=== PATIENT | female | born 1970 | race African-American/Black ===

== ENCOUNTER 2019-09-21 11:42 | Emergency (ER) | payer SELFPAY ==
[~2019-09-21] VITALS: Ht 180.3 cm; Wt 148.8 kg
--- NOTE | 2019-09-21 11:59 | NUR ---
ED Nurse Note: Pt walked in from home c/o cough and wheezing x 2 days. Denies n/v/chills/diarrhea. A+Ox4. Respirations even and unlabored on room air. Vitals stable as documented.
[2019-09-21 12:07] VITALS: BP 130/66
[2019-09-21] MEDS ORDERED: Lidocaine 4% Amp 5ml ONE (12:16)
--- NOTE | 2019-09-21 12:26 | NUR ---
ED Nurse Note: ERMD on bedside.
--- NOTE | 2019-09-21 12:40 | NUR ---
ED Nurse Note: RT on bedside.
[2019-09-21] MEDS ORDERED: PREDNISONE20 MG ORAL (12:44)
[2019-09-21] MEDS ORDERED: ZYRTEC10 M3 ORAL (12:44)
[2019-09-21] MEDS ORDERED: ZITHROMAX250 MG ORAL (12:44)
[2019-09-21] MEDS ORDERED: Albuterol/Ipratropium 3ml neb HHN ONE (12:45)
[2019-09-21] MEDS: Lidocaine 4% Amp 5ml INH ONE ×2 (12:56→13:04)
--- NOTE | 2019-09-21 12:56 | NUR ---
RESPIRATORY NOTE: ordered meds for irritation along with breathing tx. pt refuses lidocaine. states she takes breathing tx at home and one is enough. explained the benefit of taking lidocaine but refuses to take right now. will ask pt again
--- NOTE | 2019-09-21 13:00 | NUR ---
ED Nurse Note: Clarified lidocaine order per Dr. Lira. Medication picked up at pharmacy; handed to RT.
--- NOTE | 2019-09-21 13:05 | NUR ---
RESPIRATORY NOTE: pt agreed to try med lidocaine. RN aware
[2019-09-21] MEDS ORDERED: PROMETH-CODEIN 65 ML PO (13:16)
[2019-09-21 13:30] VITALS: BP 130/66
--- NOTE | 2019-09-21 13:30 | NUR ---
ER DISCHARGE NOTE: Patient is cleared to be discharged per ERMD, pt is aox4, on room air, with stable vital signs. pt was given dc and prescription instructions, pt was able to verbalize understanding, pt id band removed. pt is able to ambulate with steady gait. pt took all belongings.
--- NOTE | 2019-09-22 14:21 | Diagnostic Imaging Report ---
Indication: Dyspnea Comparison: None A single view chest radiograph was obtained. Findings: Cardiomediastinal appearance is within normal limits for age. The lungs are clear. Pulmonary vascularity is appropriate. The diaphragmatic contour is smooth and costophrenic angles are sharp. No pleural effusions are identified. The bones are unremarkable. Impression: No acute findings
--- NOTE | 2019-09-25 08:03 | Emergency Room Report ---
History of Present Illness General Chief Complaint: Upper Respiratory Illness Source: Patient Present Illness HPI Patient is a 48-year-old female presents after increased cough. Reports having prior history of COPD. States that she is a former smoker. Reports having multiple episodes of coughing which is nonproductive. Denies any fever. Denies any recent leg swelling. Had recently been on oral steroids as well as inhalers. She had recently discontinued oral steroids. Reports having increased cough. Denies any difficulty breathing. Cough had not been improving after several days. Allergies: Coded Allergies: BENZONATATE (Verified Allergy, Unknown, 09/21/19) GUAIFENESIN (Verified Allergy, Unknown, 09/21/19) Patient History Past Medical History: see triage record Last Menstrual Period: 08/17/2019 Now: No Reviewed Nursing Documentation: PMH: Agreed; PSxH: Agreed Nursing Documentation-PMH Past Medical History: No History, Except For Hx COPD: Yes Review of Systems All Other Systems: negative except mentioned in HPI Physical Exam Vital Signs Date Time Temp Pulse Resp B/P (MAP) Pulse Ox O2 Delivery O2 Flow Rate FiO2 09/21/19 11:46 98.2 82 16 130/66 (87) 98 Room Air Sp02 EP Interpretation: reviewed, normal General Appearance: normal inspection, well appearing, no apparent distress, alert, GCS 15, obese Head: atraumatic ENT: normal ENT inspection, hearing grossly normal, normal voice Neck: normal inspection, full range of motion, supple, no bony tend Respiratory: normal inspection, lungs clear, normal breath sounds, no respiratory distress, no retraction, no wheezing Cardiovascular #1: regular rate, rhythm, no edema Gastrointestinal: normal inspection, normal bowel sounds, non tender, soft, no guarding, no hernia Genitourinary: no CVA tenderness Musculoskeletal: normal inspection, back normal, normal range of motion Neurologic: alert, motor strength/tone normal, finish cleaner III-XII nml as tested, oriented x3, responsive, speech normal, normal inspection Psychiatric: normal inspection, judgement/insight normal, mood/affect normal Medical Decision Making Diagnostic Impression: Primary Impression: COPD exacerbation ER Course Patient presented for cough. Differential diagnosis include was not limited to bronchitis, pneumonia, COPD exacerbation, upper respiratory infection among others. Patient has a benign exam and does not appear to require any testing at this time. Patient states that she has allergies to multiple different types of cough medications. Patient had recently been on steroids and was given further steroids in the emergency department. She was also given breathing treatment with some improvement. She is given nebulized lidocaine without any change in cough. Patient noted to have fairly persistent coughing and had reportedly recently finished oral azithromycin. Patient was given prescription for medications for cough including codeine-containing which patient requested by name. Patient does appear to have significant cough and therefore she was given prescription for this. Patient was advised that she should follow-up with lime kiln tender for recheck and not return to the emergency department for any need for further cough medications. She is advised to return if she had increased shortness of breath fever or other concerns. The patient is advised to follow up with primary care doctor in 1-2 days. Patient is advised to return if any worsening condition or if any changes in status that are concerning. This report is dictated with [employer] vp training software which may occasionally lead to discrepancies related to use of this software. Labs Test 09/21/19 12:39 Urine HCG, Qualitative Negative (NEGATIVE) Last Vital Signs Date Time Temp Pulse Resp B/P (MAP) Pulse Ox O2 Delivery O2 Flow Rate FiO2 09/21/19 13:30 98.2 81 20 130/66 100 Room Air Status: improved Disposition: HOME, SELF-CARE Condition: Stable Scripts Promethazine HCl/Codeine (Prometh-Codein 6.25-10 mg/5 ml) 5 Ml Syrup 5 ML PO EVERY 12 HOURS for cough, #90 ML Prov: Anatoliy Lira MD 09/21/19 Azithromycin* (ZITHROMAX*) 250 Mg Tablet 250 MG ORAL DAILY, #6 TAB 0 Refills Take two tables once daily for 1 day, then one tablet once daily for 4 days. Prov: Anatoliy Lira MD 09/21/19 Cetirizine Hcl (ZYRTEC) 10 Mg Capsule 10 MG ORAL DAILY, #30 CAP 0 Refills Prov: Anatoliy Lira MD 09/21/19 Prednisone* (PREDNISONE*) 20 Mg Tablet 60 MG ORAL DAILY, #12 TAB Prov: Anatoliy Lira MD 09/21/19 Referrals: NOT CHOSEN IPA/,REFERRING (PCP) Patient Instructions: Chronic Bronchitis Anatoliy Lira MD Sep 25, 2019 08:03
== END 2019-09-21 13:30 | disposition home or self-care (01) ==
LOC: EMR 12:15
DX: J44.1 Chronic obstructive pulmonary disease with (acute) exacerbation (principal); E66.9 Obesity, unspecified; Z88.8 Allergy status to other drugs, medicaments and biological substances; Z68.42 Body mass index [BMI] 45.0-49.9, adult
CPT/HCPCS: 71045; 81025; 99284; J7512; J7620

== ENCOUNTER 2019-10-19 14:05 | Emergency (ER) | payer SELFPAY ==
[~2019-10-19] VITALS: Ht 180.3 cm; Wt 149.7 kg
[~2019-10-19 14:05] MED LIST: PREDNISONE20 MG ORAL; PROMETH-CODEIN 65 ML PO; ZITHROMAX250 MG ORAL; ZYRTEC10 M3 ORAL
[2019-10-19 14:21] VITALS: BP 165/87
--- NOTE | 2019-10-19 14:25 | Emergency Room Report ---
History of Present Illness General Chief Complaint: Upper Respiratory Illness Source: Medical Record Present Illness HPI 48-year-old female with no significant past medical history of COPD here complaining of COPD exacerbation cough x2 days. Denies any recent travel coming contact with [employer]. Denies chest pain and shortness of breath. Is requesting Phenergan with codeine 250 mm for her current insurance to cover it as well as prednisone. Denies any body aches, fever, chest pain. Denies . Has not taken medication for symptom relief. Reports that she has nebulizer treatment and inhaler at home. Allergies: Coded Allergies: BENZONATATE (Verified Allergy, Unknown, 09/21/19) GUAIFENESIN (Verified Allergy, Unknown, 09/21/19) Patient History Past Medical History: see triage record Past Surgical History: unable to obtain Pertinent Family History: none Social History: Reports: smoking Last Menstrual Period: 09/11/19 Now: No Immunizations: UTD Reviewed Nursing Documentation: PMH: Agreed; PSxH: Agreed Nursing Documentation-PMH Past Medical History: No History, Except For Hx COPD: Yes Review of Systems All Other Systems: negative except mentioned in HPI Physical Exam Vital Signs Date Time Temp Pulse Resp B/P (MAP) Pulse Ox O2 Delivery O2 Flow Rate FiO2 10/19/19 14:13 97.9 75 18 165/87 (113) 99 Room Air Sp02 EP Interpretation: reviewed, normal General Appearance: no apparent distress, alert, GCS 15, non-toxic Head: normocephalic, atraumatic Eyes: bilateral eye normal inspection, bilateral eye PERRL ENT: hearing grossly normal, normal pharynx, no angioedema, normal voice Neck: full range of motion, supple/symm/no masses Respiratory: chest non-tender, lungs clear, normal breath sounds, no rhonchi, no wheezing, speaking full sentences Cardiovascular #1: regular rate, rhythm, no edema, no murmur, normal capillary refill Cardiovascular #2: 2+ carotid (R), 2+ carotid (L), 2+ radial (R), 2+ radial (L) Gastrointestinal: normal bowel sounds, non tender, soft, non-distended, no guarding, no rebound Rectal: deferred Genitourinary: normal inspection, no CVA tenderness Musculoskeletal: back normal, digits/nails normal, no calf tenderness Neurologic: alert, motor strength/tone normal, oriented x3, sensory intact, responsive, speech normal Psychiatric: judgement/insight normal, memory normal, mood/affect normal, no suicidal/homicidal ideation Skin: no rash, normal color, warm/dry Lymphatic: no adenopathy Medical Decision Making PA Attestation All diagnoses and treatment plans were reviewed and discussed with my supervising physician Dr. Ibrahim Diagnostic Impression: Primary Impression: COPD exacerbation ER Course 48-year-old female with no significant past medical history of COPD here complaining of COPD exacerbation cough x2 days. Denies any recent travel coming contact with [email or web address]. Denies chest pain and shortness of breath. Is requesting Phenergan with codeine 250 mm for her current insurance to cover it as well as prednisone. Denies any body aches, fever, chest pain. Denies . Has not taken medication for symptom relief. Reports that she has nebulizer treatment and inhaler at home. Ddx considered but are not limited to: bronchitis, PNA, URI viral, bacterial bronchitis, COPD exacerbation Vital signs: are WNL, pt. is afebrile H&PE are most consistent with: COPD exacerbation ORDERS: Nebulizer treatment at home, only requesting Phenergan with codeine and prednisone and is requesting large quantity of 30 Phenergan with codeine, I only wrote for Phenergan with codeine limited amount as well as prednisone and Augmentin to be started in a few days of symptoms and medical weight ED INTERVENTIONS: None required at this time. DISCHARGE: At this time pt. is stable for d/c to home. Will provide printed patient care instructions, and any necessary prescriptions. Care plan and follow up instructions have been discussed with the patient prior to discharge. Patient follow-up primary care provider for further evaluation of cough and Phenergan with codeine as this is the second time that she has come here in the past few weeks for the same thing. Patient reports that afebrile for 240 mL of Phenergan With Codeine insurance will cover it however I advised her that this is not recommended as pending recording is a controlled substance and is the second time for her getting it from us that she needs to go to see sail cutter. Patient agrees. If worsening symptoms return to the emergency room Last Vital Signs Date Time Temp Pulse Resp B/P (MAP) Pulse Ox O2 Delivery O2 Flow Rate FiO2 10/19/19 14:21 97.9 75 18 165/87 99 Room Air Disposition: HOME, SELF-CARE Condition: Stable Scripts Codeine/Promethazine Hcl* (PROMETHAZINE-CODEINE SYRUP*) 118 Ml Syrup 5 ML ORAL Q6H PRN for For Cough, #180 ML 0 Refills Prov: Azam Tinoco 10/19/19 Amoxicillin/Potassium Clav 875-125* (AUGMENTIN 875-125 TABLET*) 1 Each Tablet 1 TAB ORAL TWICE A DAY for 10 Days, #20 TAB Prov: Azam Tinoco 10/19/19 Prednisone* (PREDNISONE*) 20 Mg Tablet 60 MG ORAL DAILY, #12 TAB Prov: Azam Tinoco 10/19/19 Patient Instructions: Chronic Obstructive Pulmonary Disease Exacerbation, Easy- to-Read Additional Instructions: Take medication as directed, follow-up with your primary care provider for referral to sail cutter, more fitting including should be coming from regular doctor. If worsening symptoms return to the emergency room Azam Tinoco Oct 19, 2019 14:25
[2019-10-19] MEDS ORDERED: PREDNISONE20 MG ORAL (14:27)
[2019-10-19] MEDS ORDERED: PROMETHAZINE-C118 M1 ORAL (14:27)
[2019-10-19] MEDS ORDERED: AUGMENTIN 875-1 EAC1 ORAL (14:27)
== END 2019-10-19 14:30 | disposition home or self-care (01) ==
LOC: EMR 14:20
DX: J44.1 Chronic obstructive pulmonary disease with (acute) exacerbation (principal); F17.200 Nicotine dependence, unspecified, uncomplicated; Z88.8 Allergy status to other drugs, medicaments and biological substances
CPT/HCPCS: 99282

== ENCOUNTER 2020-02-02 12:12 | Emergency (ER) | payer SELFPAY ==
[~2020-02-02] VITALS: Ht 180.3 cm; Wt 148.8 kg
[~2020-02-02 12:12] MED LIST changes: +AUGMENTIN 875-1 EAC1 ORAL; +PROMETHAZINE-C118 M1 ORAL
[2020-02-02 12:30] VITALS: BP 123/69
[2020-02-02 13:00] VITALS: BP 124/70
[2020-02-02] MEDS ORDERED: PREDNISONE20 MG ORAL (13:07)
--- NOTE | 2020-02-06 10:21 | Emergency Room Report ---
History of Present Illness General Chief Complaint: Dyspnea/Respdistress Source: Patient Present Illness HPI Patient is a 49-year-old female presents after increased cough and difficulty with breathing. Prior history of asthma. She reports having similar episodes in the past. Reports having allergies to guaifenesin as well as Tessalon. She denies taking steroids currently. Reports taking multiple medications for asthma. She states that she needs Phenergan with codeine. Previous ER visit with similar type symptoms. Reports having a recent negative coronavirus testing. 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 COVID-19 Screening: Negative COVID-19 COVID-19 Testing Source: palliative senior np Patient History Past Medical History: see triage record, asthma Now: No Reviewed Nursing Documentation: PMH: Agreed; PSxH: Agreed Nursing Documentation-PMH Past Medical History: No History, Except For Hx COPD: Yes Review of Systems All Other Systems: negative except mentioned in HPI Physical Exam Vital Signs Date Time Temp Pulse Resp B/P (MAP) Pulse Ox O2 Delivery O2 Flow Rate FiO2 02/02/20 12:25 98.4 83 18 123/69 (87) 97 Room Air General Appearance: well appearing, alert, obese Head: normocephalic, atraumatic ENT: hearing grossly normal, normal voice Neck: full range of motion, supple Respiratory: lungs clear, no respiratory distress, speaking full sentences Cardiovascular #1: normal peripheral pulses, regular rate, rhythm Musculoskeletal: normal inspection, no calf tenderness Neurologic: alert, motor strength/tone normal, logging tractor operator III-XII nml as tested, normal gait Psychiatric: mood/affect normal Skin: no rash Medical Decision Making Diagnostic Impression: Primary Impression: Asthma exacerbation ER Course Patient presented for shortness of breath. Differential diagnosis included but was not limited to asthma exacerbation, pneumonia, pneumothorax, congestive heart failure, viral respiratory infection, pulmonary embolism, anaphylaxis among others. Patient was placed in the examination room and evaluated by me immediately. Patient was noted to be in no respiratory distress. Patient's produced a text message from her phone which he states was from her doctor. She was requesting Phenergan with codeine and a specific volume. I do not feel that Phenergan was indicated and informed the patient of this. Patient was offered oral prednisone as well as other medications which were more appropriate treatments for asthma. Patient was subsequently noted to have eloped without receiving her medications that I had previously ordered. Last Vital Signs Date Time Temp Pulse Resp B/P (MAP) Pulse Ox O2 Delivery O2 Flow Rate FiO2 02/02/20 13:00 98.4 20 124/70 98 Room Air 02/02/20 12:30 83 Status: improved Disposition: ELOPED Condition: Stable Scripts Prednisone* (PREDNISONE*) 20 Mg Tablet 40 MG ORAL DAILY, #10 TAB Prov: Anatoliy Lira MD 02/02/20 Referrals: NOT CHOSEN [facility]/,REFERRING (PCP) Patient Instructions: Chronic Obstructive Pulmonary Disease Exacerbation Anatoliy Lira MD Feb 06, 2020 10:21
== END 2020-02-02 13:00 | disposition left against medical advice (07) ==
LOC: EMR 12:50
DX: R05 Cough (principal); Z53.21 Procedure and treatment not carried out due to patient leaving prior to being seen by health care provider

== ENCOUNTER 2020-05-23 14:05 | Emergency (ER) | payer SELFPAY ==
[~2020-05-23] VITALS: Ht 180.3 cm; Wt 149.7 kg
--- NOTE | 2020-05-23 14:30 | NUR ---
ED Nurse Note: pt with c/o cough for a few days and no fever. amb steady gait. pt denies fever at this time
[2020-05-23] MEDS ORDERED: PROMETHAZINE-C118 M1 ORAL (14:36)
[2020-05-23] MEDS ORDERED: DOXYCYCLINE MO100 MG ORAL (14:36)
[2020-05-23] MEDS ORDERED: PREDNISONE20 MG ORAL (14:36)
--- NOTE | 2020-05-23 14:40 | Emergency Room Report ---
History of Present Illness General Chief Complaint: Dyspnea/Respdistress Source: Patient Present Illness HPI Disclaimer: Please note that this report is being documented using [employer] technology. This can lead to erroneous entry secondary to incorrect interpretation by the dictating instrument. HPI: 49-year-old female presents for evaluation of cough. She has a history of COPD and states she is compliant with albuterol inhaler and nebulizer treatment. She has been having a somewhat productive cough without fever or chills for the past 2 days. Tested negative for COVID-19 yesterday. No recent steroids or antibiotics. She is requesting prescription for prednisone which he states helps her out in the past. Also requesting cough medication. She otherwise denies chest pain, headaches, nausea, vomiting or other symptoms. 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 EOMI. Cardiovascular: Initially tachycardic but now normal rate. S1 and S2 normal. No murmur appreciated Resp: Normal work of breathing. Faint expiratory wheeze at the bases bila terally. No stridor. Patient had with a persistent cough throughout exam though nonproductive. Abdomen: Abdomen is soft, nondistended. Nontender Skin: Intact. No abrasions, laceration or rash over the exposed skin MSK: Normal tone and bulk. Moving all extremities. No obvious deformity. Neuro: Awake and alert. Mentating appropriately. Medical Decision Making Diagnostic Impression: Primary Impression: COPD exacerbation ER Course Is a 49-year-old female history of COPD presenting for cough and shortness of breath of the past 3 days. Recently tested negative for COVID-19. Consistent with COPD exacerbation. No crackles or other findings on auscultation aside from faint wheezing. Believe patient would benefit from a course of steroids and will also prescribe doxycycline for coverage of bronchitis given her COPD status. I will fill a short prescription for promethazine for her persistent cough. Cures report shows no recent narcotic prescriptions. Instructed to follow-up with PMD. She understands and agrees with the treatment plan. Last Vital Signs Date Time Temp Pulse Resp B/P (MAP) Pulse Ox O2 Delivery O2 Flow Rate FiO2 05/23/20 14:20 98.4 109 19 131/71 (91) 98 Room Air Disposition: HOME, SELF-CARE Condition: Stable Scripts Prednisone* (PREDNISONE*) 20 Mg Tablet 60 MG ORAL DAILY for 5 Days, #15 TAB Prov: Kristofer Ibrahim MD 05/23/20 Codeine/Promethazine Hcl* (PROMETHAZINE-CODEINE SYRUP*) 118 Ml Syrup 5 ML ORAL Q6H PRN for For Cough for 5 Days, #90 ML 0 Refills Prov: Kristofer Ibrahim MD 05/23/20 Doxycycline Monohydrate* (DOXYCYCLINE MONOHYDRATE*) 100 Mg Capsule 100 MG ORAL Q12H, #14 CAP 0 Refills Prov: Kristofer Ibrahim MD 05/23/20 Referrals: [facility] Patient Instructions: Chronic Obstructive Pulmonary Disease Exacerbation Additional Instructions: Please follow-up with your primary care doctor in the next 1 to 3 days to discuss this emergency department visit and for reevaluation. If you have any new or worsening symptoms please return to the emergency department for reevaluation. Please note that this report is being documented using [employer] technology. This can lead to erroneous entry secondary to incorrect interpretation by the dictating instrument. Kristofer Ibrahim MD May 23, 2020 14:40
--- NOTE | 2020-05-23 15:35 | NUR ---
ED Nurse Note: Pt cleared by health care Provider for discharge. DC instructions given and explained to pt and verbalized understanding of teachings. All medical devices such as ID band removed. Pt is AAO x4, ambulatory and left with all personal belongings.
[2020-05-23 15:36] VITALS: BP 128/70
== END 2020-05-23 14:45 | disposition home or self-care (01) ==
LOC: EMR 14:45
DX: J44.1 Chronic obstructive pulmonary disease with (acute) exacerbation (principal); Z88.8 Allergy status to other drugs, medicaments and biological substances
CPT/HCPCS: 99282

== ENCOUNTER 2020-10-02 12:41 | Emergency (ER) | payer SELFPAY ==
[~2020-10-02] VITALS: Ht 180.3 cm; Wt 154.2 kg
[~2020-10-02 12:41] MED LIST changes: +DOXYCYCLINE MO100 MG ORAL
--- NOTE | 2020-10-02 12:57 | NUR ---
pt stated that she has been coughing for 4-5 days. hx of bronchitis, has tested neg for covid x3. pt states her cough is dry and is keeping her up at night. she uses inhalers and nebulizer machine at home. that has been helping with the wheezing. denies c/o pain
[2020-10-02 13:00] VITALS: BP 108/60
--- NOTE | 2020-10-02 13:22 | Emergency Room Report ---
History of Present Illness General Chief Complaint: Upper Respiratory Illness Source: Patient Present Illness HPI Disclaimer: Please note that this report is being documented using [employer] technology. This can lead to erroneous entry secondary to incorrect interpretation by the dictating instrument. HPI: 49-year-old female history of COPD and asthma presents for evaluation of cough. Patient has been coughing for about a week. Nonproductive. Persistent. Nonpositional. Denies fever or chills. Reported feeling wheezy over the past few days as well but controlled with her home nebulizer treatments. Tested negative for COVID-19 yesterday. No other symptoms reported. Denies recent antibiotics use. Denies recent steroid use. 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 EOMI. Resp: Normal work of breathing. No wheezing. Persistent cough throughout the exam. Bilateral crackles at bases. Skin: Intact. No abrasions, laceration or rash over the exposed skin MSK: Normal tone and bulk. Moving all extremities. No obvious deformity. Neuro: Awake and alert. Mentating appropriately Medical Decision Making Diagnostic Impression: Primary Impression: Cough ER Course Is a 49-year-old female presenting for evaluation of cough. No obvious infiltrate seen on x-ray. Likely a COPD exacerbation. Will start on prednisone. Patient declined antibiotic stating that her cough is not productive and typically does not take antibiotics when her cough is not productive but will when it is productive. She understands there is increased risk given her COPD history but declined regardless. Stable for outpatient follow-up with PMD. Instructed to return new or worsening symptoms. Chest X-Ray Diagnostic Results Chest X-Ray Diagnostic Results : Chest X-Ray Ordered: Yes # of Views/Limited/Complete: 1 View Indication: Shortness of Breath EP Interpretation: Yes Interpretation: no consolidation, no effusion, no pneumothorax Impression: No acute disease Electronically Signed by: Electronically signed by Dr. Kristofer Ibrahim MD Last Vital Signs Date Time Temp Pulse Resp B/P (MAP) Pulse Ox O2 Delivery O2 Flow Rate FiO2 10/02/20 13:00 98.8 20 108/60 96 Room Air 10/02/20 12:58 86 Disposition: HOME, SELF-CARE Condition: Stable Scripts Prednisone* (PREDNISONE*) 20 Mg Tablet 60 MG ORAL DAILY for 5 Days, #15 TAB Prov: Kristofer Ibrahim MD 10/02/20 Codeine/Promethazine Hcl* (PROMETHAZINE-CODEINE SYRUP*) 118 Ml Syrup 5 ML ORAL Q6H PRN for For Cough for 5 Days, #90 ML 0 Refills Prov: Kristofer Ibrahim MD 10/02/20 Referrals: NOT CHOSEN IPA/,REFERRING (PCP) Kristofer Ibrahim MD Oct 02, 2020 13:22
[2020-10-02] MEDS ORDERED: PROMETHAZINE-C118 M1 ORAL (13:33)
[2020-10-02] MEDS ORDERED: PREDNISONE20 MG ORAL (13:33)
[2020-10-02 13:46] VITALS: BP 132/67
--- NOTE | 2020-10-02 13:57 | Diagnostic Imaging Report ---
FILM CXR 1 VIEW INDICATION: Cough COMPARISON: 21 September 2019 FINDINGS: Single frontal view demonstrates a normal cardiomediastinal silhouette. Subtle right lower lobe opacity. No pleural effusions. The visualized osseous structures are within normal limits. IMPRESSION: Right lower lobe infiltrate
== END 2020-10-02 13:46 | disposition home or self-care (01) ==
LOC: EMR 13:11
DX: R05 Cough (principal); J44.9 Chronic obstructive pulmonary disease, unspecified; E66.9 Obesity, unspecified; Z68.42 Body mass index [BMI] 45.0-49.9, adult; Z88.8 Allergy status to other drugs, medicaments and biological substances
CPT/HCPCS: 71045; 99283